=== PATIENT | female | born 1980 | race African-American/Black ===

== ENCOUNTER 2017-08-25 08:04 | Inpatient (IN) | payer OTHER ==
[2017-08-25] MEDS ORDERED: BUTORPHANOL TARTRATE 1 MG/ML VIAL IVPB ONE (09:03)
[2017-08-25] MEDS ORDERED: PROMETHAZINE HCL 25 MG/1 ML VIAL IVPUSH ONE (09:03)
[2017-08-25] MEDS ORDERED: MAG HYDROX/AL HYDROX/SIMETH 30 ML UNIT-DOSE CUP PO PRN (09:16)
[2017-08-25] MEDS ORDERED: DINOPROSTONE 10 MG VAGINAL SUPPOSITORY VG ONE ×2 (09:23→21:10)
[2017-08-25] MEDS ORDERED: ACETAMINOPHEN 325 MG TABLET (FP) PO PRN (09:26)
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
[2017-08-25 10:17] LABS: BASOPHIL 0.3 % (0-2.0); EOSINOPHIL 1.8 % (0-4.5); MCH 29.2 pg (25.7-33.7); MCHC 34.7 g/dl (32.0-36.0); MEAN CELL VOLUME 84.1 fl (80-96); MEAN PLT VOLUME 8.2 fl (7.5-11.1); NEUTROPHILS 51.4 % (42.8-82.8); PLATELET COUNT 131 K/MM3 (134-434); RDW 13.9 % (11.6-15.6)
[2017-08-25 10:29] VITALS: BMI 34.1
[2017-08-25] MEDS: oxyCODONE HCL 5 MG TABLET PO PRN ×3 (10:45→23:25)
[2017-08-25 10:46] LABS: INR 1.04 (0.82-1.09); PROTHROMBIN TIME (PATIENT) 11.7 SEC (9.98-11.88)
[2017-08-25 10:56] LABS: ANION GAP 7 (8-16); CALCIUM 8.6 mg/dL (8.5-10.1); CO2 23 mmol/L (21-32); CREATININE 0.3 mg/dL (0.55-1.02); GLUCOSE,RANDOM 76 mg/dL (74-106)
[2017-08-25] MEDS ORDERED: RANITIDINE HCL 150 MG TABLET (FP) PO PRN (15:16)
--- NOTE | 2017-08-25 21:08 | PN ---
Ante-Partal Exam - Subjective Subjective: Pt feeling some contractions today but tolerating them. Vital Signs: Vital Signs Temperature 98.0 F 08/25/17 18:00 Pulse Rate 80 08/25/17 20:00 Respiratory Rate 18 08/25/17 20:00 Blood Pressure 121/67 08/25/17 20:00 O2 Sat by Pulse Oximetry (%) Bleeding: Yes Bleeding Description: Mild Headache: No Visual changes: No Right upper quadrant pain: No - Contractions Contractions: Yes Regularity: Irregular Intensity: Mild Monitor Mode: External - Exam during Labor Heart Rate: 140 Variability: Moderate Category: I Monitor Accelerations: Present Monitor Decelerations: None Exam: Vaginal Dilatation (cm): 2 Effacement (%): 0 Amniotic Membrane Status: Intact Presentation: Vertex Station: -3 - Assessment/Plan Assessment/Plan: 37 y/o, IOL for CHTN s/p cervidil, removed, for 2nd cervidil tonight and removal in a.m. - then pitocin GBS positive, to start once ROM or if needs pain meds/active labor
[2017-08-25] MEDS: ELECTROLYTE-148 SOLN 1,000 ML IV SCH (22:30)
[2017-08-26] MEDS ORDERED: AMPICILLIN - 2 GM in SODIUM CHLORIDE 100 ML IVPB ONE (01:00)
[2017-08-26] MEDS ORDERED: FENTANYL/BUPIVACAINE/NS/PF - PCEA - 50 ML DISP.SYRIN EP SCH (01:00)
[2017-08-26] MEDS: AMPICILLIN - 1 GM in SODIUM CHLORIDE 100 ML IVPB SCH ×5 (05:00→21:32)
--- NOTE | 2017-08-26 05:07 | PN ---
Ante-Partal Exam - Subjective Subjective: Pt comfortable s/p epidural. Vital Signs: Vital Signs Temperature 98.0 F 08/26/17 02:00 Pulse Rate 83 08/26/17 03:30 Respiratory Rate 20 08/26/17 03:30 Blood Pressure 109/61 08/26/17 03:30 O2 Sat by Pulse Oximetry (%) 96 08/26/17 03:00 Bleeding: Yes Bleeding Description: Mild Headache: No Visual changes: No Right upper quadrant pain: No Pain (scale 1-10): 2 - Contractions Contractions: Yes Regularity: Regular Intensity: Mod/Strong Monitor Mode: External - Exam during Labor Heart Rate: 130 Variability: Moderate Category: I Monitor Accelerations: Present Monitor Decelerations: None Exam: Vaginal Dilatation (cm): 3.5 Effacement (%): 50 Amniotic Membrane Status: Intact Presentation: Vertex Station: -2 - Assessment/Plan Assessment/Plan: 37 y/o , IOL at 38 weeks for chronic HTN - FHTS cat 1 - IOL, s/p cervidil X 2 , 2nd cervidil removed at this time. Will start pitocin around 6am - GBS positive, continue ampicillin - anticipate
[2017-08-26] MEDS ORDERED: OXYTOCIN 15 UNITS/ LR 250 ML 15 UNIT/250 ML INFUS.BAG IV SCH (06:30)
[2017-08-26] MEDS: oxyCODONE HCL 5 MG TABLET PO PRN ×2 (07:25→16:05)
--- NOTE | 2017-08-26 07:54 | PN ---
Ante-Partal Exam - Subjective Subjective: Pt feeling some pain with contractions. Vital Signs: Vital Signs Temperature 98.1 F 08/26/17 05:58 Pulse Rate 77 08/26/17 06:45 Respiratory Rate 20 08/26/17 06:45 Blood Pressure 115/69 08/26/17 06:45 O2 Sat by Pulse Oximetry (%) 96 08/26/17 06:45 Bleeding: No Headache: No Visual changes: No Right upper quadrant pain: No - Contractions Contractions: Yes Regularity: Regular Intensity: Mild/Mod - Exam during Labor Heart Rate: 145 Variability: Moderate Category: I Monitor Accelerations: Present Monitor Decelerations: None Exam: Vaginal Dilatation (cm): 4 Effacement (%): 50 Amniotic Membrane Status: Intact Presentation: Vertex Station: -2 - Assessment/Plan Assessment/Plan: 37 y/o , IOL at 38 weeks for cHTN - FHTs cat 1 - IOL, s/p cervidil, now on pitocin - GBS positive, continue ampicillin - chronic pain on oxycodone throughout - took dose this a.m. (TID dosing) - will inform neonatology for delivery - continue active management
--- NOTE | 2017-08-26 17:33 | PN ---
Ante-Partal Exam - Subjective Subjective: Pt feeling vaginal pain/pressure. Vital Signs: Vital Signs Temperature 98.7 F 08/26/17 15:02 Pulse Rate 78 08/26/17 16:30 Respiratory Rate 20 08/26/17 16:30 Blood Pressure 114/92 08/26/17 16:30 O2 Sat by Pulse Oximetry (%) 96 08/26/17 06:45 Bleeding: Yes Bleeding Description: Mild Headache: No Visual changes: No Right upper quadrant pain: No Pain (scale 1-10): 6 - Contractions Contractions: Yes Regularity: Regular Intensity: Mod/Strong Monitor Mode: External - Exam during Labor Heart Rate: 155 Variability: Moderate Category: I Monitor Accelerations: Present Monitor Decelerations: None Exam: Vaginal Dilatation (cm): 7.5 Effacement (%): 90 Amniotic Membrane Status: Ruptured Presentation: Vertex Station: 0 - Assessment/Plan Assessment/Plan: 37 y/o, SIUP at 38.4 weeks, IOL for cHTN - FHTS cat 1 - IOL, s/p cervidil, now on pitocin, s/p AROM, continue active management - GBS postiive, continue ampicillin - pt on chronic opioid therapy throughout - nursery aware of impending delivery - anticipate
[2017-08-26] MEDS: OXYTOCIN 20 UNITS in 0.9% NS 20 UNIT/1,000 ML INFUS.BAG IV SCH (20:15)
[2017-08-26] MEDS ORDERED: MISOPROSTOL 200 MCG TABLET NR SCH (20:20)
[2017-08-26] MEDS ORDERED: BENZOCAINE 28 GM HEMORRHOIDAL OINTMENT TP PRN (20:35)
[2017-08-26] MEDS ORDERED: METHYLERGONOVINE MALEATE 0.2 MG/1 ML AMP IM PRN (20:35)
[2017-08-26] MEDS ORDERED: WITCH HAZEL 50% (TUCKS) 40 PAD/JAR PAD TP PRN (20:35)
[2017-08-26] MEDS ORDERED: BENZOCAINE 20% 57 GM BOTTLE TP PRN (20:35)
[2017-08-26] MEDS ORDERED: BISACODYL 10 MG SUPP.RECT RC PRN (20:35)
[2017-08-26] MEDS ORDERED: IBUPROFEN 800 MG/8 ML IJ IVPB ONE (20:40)
[2017-08-26] MEDS ORDERED: oxyCODONE HCL 5 MG TABLET PO ONE (20:41)
[2017-08-26] MEDS ORDERED: METHYLERGONOVINE MALEATE 0.2 MG/1 ML AMP IM ONE (20:45)
--- NOTE | 2017-08-26 20:46 | PN ---
Delivery - Delivery Vaginal Delivery: No Problems Type of Anesthesia: Epidural Episiotomy/Laceration: None EBL (cc): 400 Delivery, Single - Stages of Labor Date of Delivery: 08/26/17 Time of Delivery: 20:08 Date Placenta Delivered: 08/26/17 Time Placenta Delivered: 20:12 Placenta: Yes: Spontaneous, Manual Removal - Condition of Color Checker/Structural Fitter Present: No Gender: Female Position: Right, OA - 1 Minute Total Score: 9 5 Minutes Total Score: 10 - Feeding Plan Initial Plan: Elected not to breastfeed exclusively throughout hospitalization Remarks - Remarks Remarks: Uncomplicated delivery of baby girl across intact perineum from EDUARDO position anterior shoudler (right) delivered with ease along with remainder of cord clamped and cut apgars 9/10 placenta manually extracted Uterine atony noted s/p delivery of placenta - pt received one dose of Methergine 0.2mg IM X 1 and Cytotec 1000mcg ND after delivery no laceration EBL 400 lochia WNL after delivery sponge count correct mom stable baby to well baby nursery
[2017-08-26] MEDS ORDERED: MISOPROSTOL 200 MCG TABLET NR ONE (21:00)
[2017-08-26] MEDS: ELECTROLYTE-148 SOLN 1,000 ML IV SCH (22:36)
[2017-08-27] MEDS ORDERED: METHYLERGONOVINE MALEATE 0.2 MG/1 ML AMP IM SCH (00:15)
[2017-08-27] MEDS: oxyCODONE HCL 5 MG TABLET PO PRN ×4 (00:39→22:52)
[2017-08-27] MEDS: ACETAMINOPHEN 325 MG TABLET (FP) PO PRN ×4 (00:40→22:53)
[2017-08-27] MEDS: OXYTOCIN 20 UNITS in 0.9% NS 20 UNIT/1,000 ML INFUS.BAG IV SCH (00:40)
[2017-08-27] MEDS: IBUPROFEN 600 MG TABLET (FP) PO PRN ×3 (00:40→20:26)
[2017-08-27] MEDS: FERROUS SO4 325 MG TABLET (FP) PO SCH ×3 (07:54→17:01)
[2017-08-27] MEDS: METHYLERGONOVINE MALEATE 0.2 MG TABLET (FP) PO SCH ×2 (07:55→14:26)
[2017-08-27 08:48] LABS: BASOPHIL 0.1 % (0-2.0); EOSINOPHIL 0.4 % (0-4.5); MCH 29.6 pg (25.7-33.7); MCHC 34.9 g/dl (32.0-36.0); MEAN CELL VOLUME 84.9 fl (80-96); MEAN PLT VOLUME 8.7 fl (7.5-11.1); NEUTROPHILS 66.5 % (42.8-82.8); PLATELET COUNT 127 K/MM3 (134-434); RDW 13.7 % (11.6-15.6); WHITE BLOOD COUNT 10.3 K/mm3 (4.0-10.0)
[2017-08-27] MEDS: PRENATAL VITAMINS W/ FOLIC ACID TABLET (FP) PO SCH (09:05)
--- NOTE | 2017-08-27 09:17 | PN ---
Post Note - Post Date of Delivery: 08/26/17 Post Day: 1 Vital Signs: Vital Signs - 24 hr 08/26/17 08/26/17 08/26/17 09:30 09:45 10:00 Temperature Pulse Rate 79 79 79 Respiratory 20 20 20 Rate Blood Pressure 115/65 121/69 113/65 O2 Sat by Pulse Oximetry (%) 08/26/17 08/26/17 08/26/17 10:15 10:30 10:45 Temperature Pulse Rate 76 80 79 Respiratory 20 20 20 Rate Blood Pressure 111/70 114/71 117/69 O2 Sat by Pulse Oximetry (%) 08/26/17 08/26/17 08/26/17 11:00 11:15 11:30 Temperature 97.9 F Pulse Rate 77 77 78 Respiratory 20 20 20 Rate Blood Pressure 131/73 122/72 121/69 O2 Sat by Pulse Oximetry (%) 08/26/17 08/26/17 08/26/17 11:45 12:00 12:15 Temperature Pulse Rate 83 79 87 Respiratory 20 20 20 Rate Blood Pressure 109/66 100/54 128/71 O2 Sat by Pulse Oximetry (%) 08/26/17 08/26/17 08/26/17 12:30 12:45 13:00 Temperature Pulse Rate 80 73 78 Respiratory 20 20 20 Rate Blood Pressure 115/67 106/63 111/64 O2 Sat by Pulse Oximetry (%) 08/26/17 08/26/17 08/26/17 13:30 13:45 14:00 Temperature 98.5 F Pulse Rate 91 H 71 Respiratory 20 20 Rate Blood Pressure 115/64 109/55 O2 Sat by Pulse Oximetry (%) 08/26/17 08/26/17 08/26/17 14:15 14:30 14:45 Temperature Pulse Rate 83 73 77 Respiratory 20 20 20 Rate Blood Pressure 117/61 113/59 117/74 O2 Sat by Pulse Oximetry (%) 08/26/17 08/26/17 08/26/17 15:00 15:02 15:15 Temperature 98.7 F Pulse Rate 77 78 Respiratory 20 20 Rate Blood Pressure 125/63 125/74 O2 Sat by Pulse Oximetry (%) 08/26/17 08/26/17 08/26/17 15:30 15:45 16:00 Temperature Pulse Rate 80 86 72 Respiratory 20 20 20 Rate Blood Pressure 123/75 129/76 112/55 O2 Sat by Pulse Oximetry (%) 08/26/17 08/26/17 08/26/17 16:15 16:30 16:45 Temperature Pulse Rate 85 78 79 Respiratory 20 20 20 Rate Blood Pressure 118/78 114/92 125/72 O2 Sat by Pulse Oximetry (%) 08/26/17 08/26/17 08/26/17 17:00 17:15 17:30 Temperature Pulse Rate 83 79 87 Respiratory 20 20 20 Rate Blood Pressure 128/74 128/73 124/71 O2 Sat by Pulse Oximetry (%) 08/26/17 08/26/17 08/26/17 17:45 18:00 18:15 Temperature Pulse Rate 91 H 84 92 H Respiratory 20 20 20 Rate Blood Pressure 122/70 125/60 121/75 O2 Sat by Pulse Oximetry (%) 08/26/17 08/26/17 08/26/17 18:30 18:45 19:00 Temperature Pulse Rate 93 H 98 H 85 Respiratory 20 20 18 Rate Blood Pressure 123/69 123/70 126/67 O2 Sat by Pulse Oximetry (%) 08/26/17 08/26/17 08/26/17 19:15 19:30 19:45 Temperature 98.6 F Pulse Rate 93 H 93 H 89 Respiratory 18 18 18 Rate Blood Pressure 135/77 124/75 124/74 O2 Sat by Pulse Oximetry (%) 08/26/17 08/26/17 08/26/17 20:00 20:30 20:45 Temperature Pulse Rate 96 H 75 77 Respiratory 18 18 18 Rate Blood Pressure 138/83 135/73 134/70 O2 Sat by Pulse 100 100 Oximetry (%) 08/26/17 08/26/17 08/26/17 21:00 21:15 21:30 Temperature 98.8 F Pulse Rate 75 76 75 Respiratory 18 18 18 Rate Blood Pressure 135/70 127/70 135/70 O2 Sat by Pulse 100 100 100 Oximetry (%) 08/26/17 08/26/17 08/27/17 21:45 22:10 02:00 Temperature 98.8 F 98.0 F 98.0 F Pulse Rate 87 85 73 Respiratory 18 18 18 Rate Blood Pressure 137/82 154/84 131/78 O2 Sat by Pulse 100 100 Oximetry (%) 08/27/17 06:00 Temperature 97.9 F Pulse Rate 57 L Respiratory 18 Rate Blood Pressure 135/75 O2 Sat by Pulse Oximetry (%) Labs: Laboratory Results - last 24 hr 08/27/17 07:35 WBC 10.3 H D RBC 3.45 L Hgb 10.2 L Hct 29.3 L MCV 84.9 MCH 29.6 MCHC 34.9 RDW 13.7 Plt Count 127 L MPV 8.7 Neutrophils % 66.5 D Lymphocytes % 27.4 D Monocytes % 5.6 Eosinophils % 0.4 Basophils % 0.1 - Subjective Subjective: Other (Pt in shower) - Objective Afebrile: Yes Vagina: Scant lochia - Assessment/Plan (1) Vaginal delivery Assessment: S/P Normal Plan: Routine Care
[2017-08-27] MEDS ORDERED: SENNOSIDES/DOCUSATE COMBO (SENNA PLUS) TABLET (UD) PO PRN (22:00)
[2017-08-28] MEDS: oxyCODONE HCL 5 MG TABLET PO PRN (07:46)
[2017-08-28] MEDS: FERROUS SO4 325 MG TABLET (FP) PO SCH ×2 (07:46→11:50)
[2017-08-28] MEDS: ACETAMINOPHEN 325 MG TABLET (FP) PO PRN (07:47)
--- NOTE | 2017-08-28 08:42 | DS ---
Physical Exam-HAND WINDER Vital Signs: Vital Signs Temperature 98.0 F 08/27/17 20:16 Pulse Rate 55 L 08/27/17 20:16 Respiratory Rate 20 08/27/17 20:16 Blood Pressure 130/76 08/27/17 20:16 O2 Sat by Pulse Oximetry (%) 100 08/26/17 22:10 Constitutional: Yes: Well Nourished, No Distress, Calm Eyes: Yes: Conjunctiva Clear, EOM Intact HENT: Yes: Atraumatic, Normocephalic Neck: Yes: Supple, Trachea Midline Cardiovascular: Yes: Regular Rate and Rhythm Respiratory: Yes: Regular, CTA Bilaterally Gastrointestinal: Yes: Normal Bowel Sounds, Soft External Genitalia: Yes: Other (vuvlar varicosities on right side) Vaginal Exam: Yes: Normal Uterus: Yes: Normal Labs: CBC, BMP 08/27/17 07:35 08/25/17 09:40 Delivery - Delivery Vaginal Delivery: No Problems Type of Anesthesia: Epidural Episiotomy/Laceration: None EBL (cc): 400 Delivery, Single - Stages of Labor Date 1st Stage Initiatied: 08/26/17 Time 1st Stage Initiated: 00:00 Date 2nd Stage Initiated: 08/26/17 Time 2nd Stage Initiated: 19:50 Date of Delivery: 08/26/17 Time of Delivery: 20:08 Date Placenta Delivered: 08/26/17 Time Placenta Delivered: 20:12 Placenta: Yes: Spontaneous, Manual Removal - Condition of Cable Maintainer/Build Engineer Present: No Infant Gender: Female Weight: 6 lb 1 oz Position: Right, OA Total Hours ROM (Hrs/Mins): 9hrs/52mins - 1 Minute Total Score: 9 5 Minutes Total Score: 10 - Feeding Plan Initial Plan: Elected not to breastfeed exclusively throughout hospitalization Discharge Summary Current Active Problems Chronic hypertension affecting (Acute) Elderly multigravida (Acute) Group beta Strep positive (Acute) Varicose vein leg preg-unsp (Acute) Procedures: Principal: normal Hospital Course: Pt underwent uncomplicated induction of labor and . Pt discharged home in stable condition on post day 2. Condition: Good - Instructions Diet, Activity, Other Instructions: Physical activity Resume your normal everyday activity as tolerated but no heavy lifting or strenuous exercise until seen by your doctor. You may walk unlimited amounts and climb stairs. You may resume driving the car when you feel safe and comfortable behind the wheel. No sexual activity as instructed for 6 weeks. Wound care You have stitches that will dissolve on their own. You may shower daily, please don't soak in tubs/baths/pools for 6 weeks. Diet There are no dietary restrictions. Eat healthy, high-fiber foods. Drink 6 to 8 glasses of liquid each day. This will assist in keeping your bowels regular. Pain management You may take Tylenol or Ibuprofen (for example, Motrin, Advil etc) as needed for pain. Call MD for any of the following: Severe pain not relieved by medication Fever of 101 or higher Excessive bleeding or drainage on dressing Inability to urinate return to office in 4-6 weeks. call for appointment. Referrals: Radha Barksdale MD [Staff Physician] - Disposition: HOME - Home Medications Comprehensive Discharge Medication List: Ambulatory Orders Acetaminophen [Tylenol .Regular Strength -] 650 mg PO Q4H PRN #0 tablet Docusate Sodium [Colace -] 1 cap PO DAILY 08/25/17 Oxycodone HCl [Roxicodone] 10 mg PO PRN PRN 08/25/17 Vit/Iron Fumarate/FA [ Tablet] 1 tab PO DAILY 08/25/17 Zantac - 150 tab PO PRN PRN 08/25/17 Ibuprofen [Motrin -] 600 mg PO QID PRN #28 tablet 08/27/17
[2017-08-28 09:11] VITALS: BP 128/73; PULSE 66; TEMP 97.5
[2017-08-28] MEDS: PRENATAL VITAMINS W/ FOLIC ACID TABLET (FP) PO SCH (09:50)
== END 2017-08-28 12:30 | disposition home or self-care (01) | DRG 560 ==
LOC: JLDR 08:04 → J3W 08-26 22:10
PROVIDERS: ADMIT Obstetrics & Gynecology; ATTEND Obstetrics & Gynecology
DX: O10.02 Pre-existing essential hypertension complicating childbirth (principal); O99.824 Streptococcus B carrier state complicating childbirth; O87.4 Varicose veins of lower extremity in the puerperium; O87.8 Other venous complications in the puerperium; K21.9 Gastro-esophageal reflux disease without esophagitis; O26.893 Other specified pregnancy related conditions, third trimester; M54.5 Low back pain; G89.29 Other chronic pain; O32.2XX0 Maternal care for transverse and oblique lie, not applicable or unspecified; O72.1 Other immediate postpartum hemorrhage; O99.214 Obesity complicating childbirth; E66.9 Obesity, unspecified; Z68.34 Body mass index [BMI] 34.0-34.9, adult; Z87.891 Personal history of nicotine dependence; Z3A.38 38 weeks gestation of pregnancy; Z37.0 Single live birth
CPT/HCPCS: 36415; 59409; 80048; 85025; 85610; 85730; 86593; 86850; 86900; 86901; 86922

== ENCOUNTER → 2018-11-17 | Day surgery (SDC) | payer OTHER ==
[~2018-11-17] MED LIST: ACETAMINOPHEN 1000 MG/100 ML VIAL (NON FORMULARY) IVPB ONE; ACETAMINOPHEN 325 MG TABLET (FP) PO PRN; ACETAMINOPHEN INJECTION 100 ML IVPB ONE; BUPIVACAINE HCL/PF (5 MG/ML) 30 ML VIAL IJ ONE; BUPIVACAINE HCL/PF 0.5% (5MG/ML) 10 ML VIAL ONE; IBUPROFEN 800 MG/8 ML IJ IVPB PRN; LACTATED RINGERS SOLUTION 1,000 ML IV SCH; MIDAZOLAM HCL 2 MG/2 ML SINGLE DOSE VIAL ONE; NEOSTIGMINE METHYLSULFATE 0.5 MG/ML - 10 ML MDV ONE; ONDANSETRON 4 MG/2 ML VIAL IVPUSH PRN; PROMETHAZINE HCL 25 MG/1 ML VIAL IVPB PRN; ROCURONIUM BROMIDE 50 MG/5 ML VIAL ONE
[2018-11-17 09:35] VITALS: BMI 34.2
--- NOTE | 2018-11-17 10:13 | HP ---
History & Physical Update - History History: No Change - Physical Physical: No Change - Assessment Assessment: No Change - Plan Plan: No Change (Agree with H&P from 11/15/18 - for laparoscopic b/l salpingectomy)
--- NOTE | 2018-11-17 11:49 | OP ---
<Alen Montgomery - Last Filed: 11/17/18 11:46> Operative Note - Note: Operative Date: 11/17/18 Pre-Operative Diagnosis: Elective sterilization Operation: Laprascopic bilateral salpingectomy Post-Operative Diagnosis: Same as Pre-op Surgeon: Zoe Garcia Vp Corporate Development: Alen Montgomery Anesthesiologist/SOIL CHEMIST: William Vargas Anesthesia: General Specimens Removed: bilateral tubes Estimated Blood Loss (mls): 10 Drains, Volume Out (mls): 100 (clear/almonte) Fluid Volume Replaced (mls): 800 Operative Report Dictated: Yes <Zoe Garcia - Last Filed: 11/18/18 06:52> Operative Note - Note: Operation: dictation [id number]
--- NOTE | 2018-11-17 11:50 | SURG ---
Surgery Headrig Sawyer Note Headrig Sawyer: Alen Montgomery PA-C Date of Service: 11/17/18 Diagnosis: Elective sterilization Procedure: Laprascopic bilateral salpingectomy I was present for the entirety of the operative procedure. For further detail, please refer to operative report. Visit type - Case Type Case Type: Scheduled - New patient This patient is new to me today: Yes Date on this admission: 11/17/18
[2018-11-17 13:23] VITALS: BP 140/92; PULSE 84; TEMP 97.5
--- NOTE | 2018-11-18 07:37 | OP ---
DATE OF OPERATION: 11/17/2018 PREOPERATIVE DIAGNOSIS: Desires sterilization, multiparity. POSTOPERATIVE DIAGNOSIS: Desires sterilization, multiparity. PROCEDURE: Laparoscopic bilateral salpingectomy. SURGEON: Zoe Garcia MD REPRESENTATIVE GOVERNMENT RELATIONS: REBEL Restrepo ANESTHESIA: General.by Roosevelt Kinney MD, and William Vargas CRNA. ESTIMATED BLOOD LOSS: 10 mL. COMPLICATIONS: None. COUNTS: Sponge, needle, and instrument counts correct. SPECIMENS REMOVED: Bilateral fallopian tubes. DISPOSITION: Stable to PACU. BRIEF HISTORY AND PROCEDURE: Patient is a 38-year-old female who had been seen in the office and expressed desire for a sterilization procedure. The patient was counseled on her options and signed consents for a laparoscopic bilateral salpingectomy. The patient was admitted to [facility] on November 17, 2018. Consents for the procedure were reconfirmed, and the patient was taken back to the operating room and given general anesthesia and placed in the dorsal lithotomy position. She was prepped and draped in the usual standard fashion. A New catheter was placed under sterile conditions, and a hard time-out was performed. A 5-mm skin incision was created in the umbilicus,. and a Veress needle was inserted intraabdominally. The abdomen was insufflated with CO2 gas, and a 5-mm trocar was placed in the umbilical incision, and the camera was inserted. After a confirmation of intraabdominal placement, two 5-mm lower quadrant ports were placed, one in the left, one in the right. The left fallopian tube was identified and traced to is fimbriated end, elevated and dissected off its attachments to the ovary, mesosalpinx, and uterus using the LigaSure device. It was removed from the trocar under direct visualization and sent to Pathology for permanent evaluation. The same was repeated with the right fallopian tube. All surgical sites were noted to be hemostatic. Examination of the remainder of the intraabdominal contents appeared to be normal. All instruments were removed from the abdomen. The abdomen was desufflated. The trocars were removed. The skin was reapproximated using 4-0 Biosyn and skin glue. The New catheter was removed. The patient was awoken from anesthesia and recovered in stable condition in the PACU after the procedure. ZOE GARCIA DO /[id number]
--- NOTE | 2018-11-19 18:24 | PATH ---
Surgical Pathology Report Patient Name: INOCENCIA BAXTER [facility]. Rec. #: [id number] /Age/Gender: 1980 (Age: 38) / F Account: [id number] Location: [facility] OBS/SUPPLY TECHNICIAN Taken: 11/17/2018 Received: 11/17/2018 Reported: 11/19/2018 Physicians: Zoe Garcia M.D. Specimen(s) Received A: LEFT FALLOPIAN TUBE B: RIGHT FALLOPIAN TUBE Clinical History Voluntary sterilization Final Diagnosis A. FALLOPIAN TUBE, LEFT, LAPAROSCOPIC SALPINGECTOMY: UNREMARKABLE FALLOPIAN TUBE (INCLUDING FIMBRIATED END AND FULL LUMINAL PORTION). B. FALLOPIAN TUBE, RIGHT, LAPAROSCOPIC SALPINGECTOMY: FALLOPIAN TUBE WITH PARATUBAL CYST (INCLUDING FIMBRIATED END AND FULL LUMINAL PORTION). Electronically Signed Rosa Isela Enrique M.D. Gross Description A. Received in formalin labeled "left fallopian tube," is an 8.5 cm in length fimbriated fallopian tube. The outer surface is denton-galeas and smooth. Sectioning reveals an unremarkable lumen. Dust Puller sections are submitted in 2 cassettes as follows: 1-fimbria; 2-cross sections of fallopian tube. B. Received in formalin labeled "right fallopian tube," is an 8.5 cm in length fimbriated fallopian tube. The outer surface is galeas purple and smooth with a 0.5 cm in greatest dimension paratubal cyst attached to the fimbria. Sectioning reveals an unremarkable lumen. Dust Puller sections are submitted in 2 cassettes as follows: 1-fimbria and paratubal cyst; 2-cross section of fallopian tube. [facility]
== END | disposition home or self-care (01) ==
LOC: JASUSAT 04:53
PROVIDERS: ATTEND Obstetrics & Gynecology
PROC: 0U574ZZ Destruction of Bilateral Fallopian Tubes, Percutaneous Endoscopic Approach (ICD-10-PCS; principal; 2018-11-17 10:30)
DX: Z30.2 Encounter for sterilization (principal)
CPT/HCPCS: 36415; 84703; 88302-TC; 94760; J0131

== ENCOUNTER 2019-12-25 13:27 | Emergency (ER) | payer OTHER ==
[2019-12-25 13:36] VITALS: BP 147/89; PULSE 76; TEMP 97.9
--- NOTE | 2019-12-25 13:39 | PDOC ---
History of Present Illness - General Stated Complaint: COUGH/SOB/CHEST PAIN Time Seen by Provider: 12/25/19 13:36 History Source: Patient - History of Present Illness Timing/Duration: reports: other Past History - Past Medical History Allergies/Adverse Reactions: Allergies Allergy/AdvReac Type Severity Reaction Status Date / Time No Known Allergies Allergy Verified 11/17/18 09:29 Home Medications: Ambulatory Orders Acetaminophen [Tylenol .Regular Strength -] 650 mg PO Q4H PRN #0 tablet 05/21/12 Hydrochlorothiazide 25 mg PO DAILY 11/17/18 Asthma: No Cancer: No Cardiac Disorders: No Diabetes: No HTN: Yes Seizures: No Thyroid Disease: No - Surgical History Orthopedic Surgery: Yes (Right hand sx) - Psycho Social/Smoking Cessation Hx Smoking History: Never smoked Have you smoked in the past 12 months: No Number of Cigarettes Smoked Daily: 0 If you are a former smoker, when did you quit?: 2016 Information on smoking cessation initiated: No Hx Alcohol Use: No Drug/Substance Use Hx: No Substance Use Type: None Hx Substance Use Treatment: No Review of Systems - Review of Systems Constitutional: Yes: Chills, Fever Respiratory: Yes: Cough Cardiac (ROS): No: Chest Pain *Physical Exam - Vital Signs Last Vital Signs Temp Pulse Resp BP Pulse Ox 97.9 F 76 20 147/89 100 12/25/19 13:27 12/25/19 13:27 12/25/19 13:27 12/25/19 13:27 12/25/19 13:27 - Physical Exam General Appearance: Yes: Appropriately Dressed. No: Apparent Distress HEENT: positive: Normal ENT Inspection, Normal Voice, TMs Normal, Pharynx Normal. negative: Scleral Icterus (R), Scleral Icterus (L) Neck: positive: Supple Respiratory/Chest: positive: Lungs Clear, Normal Breath Sounds. negative: Respiratory Distress Cardiovascular: positive: Regular Rate, S1, S2 Integumentary: positive: Dry, Warm Neurologic: positive: Fully Oriented, Alert, Normal Mood/Affect Medical Decision Making - Medical Decision Making 12/25/19 13:37 39 yo F, HTN, works at [employer], here w/ sob w/ cough and HARRELL since yesterday see exam Viral illness Works in assisted living Exam unremarkable CXR pending 12/25/19 13:52 Signed out to OJ Martínez at this point Discharge - Discharge Information Problems reviewed: Yes Clinical Impression/Diagnosis: Viral illness - Follow up/Referral - Patient Discharge Instructions - Post Discharge Activity
--- NOTE | 2019-12-25 14:58 | PDOC ---
*Physical Exam - Vital Signs Last Vital Signs Temp Pulse Resp BP Pulse Ox 97.9 F 76 20 147/89 100 12/25/19 13:27 12/25/19 13:27 12/25/19 13:27 12/25/19 13:27 12/25/19 13:27 Medical Decision Making - Medical Decision Making 12/25/19 14:57 cxr shows early infiltrates. ambulated the ED ramp, o2 sat 98% on RA with mask, rx sent for zpak Discharge - Discharge Information Problems reviewed: Yes Clinical Impression/Diagnosis: Pneumonia Condition: Good Disposition: HOME - Additional Discharge Information Prescriptions: Acetaminophen 650 mg PO QID PRN #60 tablet PRN Reason: Fever Azithromycin [Zithromax Tri-Anselmo (3 DAYS) -] 500 mg PO DAILY #3 tablet - Follow up/Referral Referrals: Jensen Pena MD [Primary Care Provider] - - Patient Discharge Instructions Patient Printed Discharge Instructions: [facility] COVID-19 Isolation Protocol, [facility]-Coronavirus Instructions, Pneumonia-Adult Additional Instructions: You were seen for your cough and possible Coronavirus (COVID-19) Take antibiotics as prescribed Take Tylenol 650 mg every 6 hours as needed for fever or pain. You may take Robitussin or other hkwm-qhm-rgejido cough syrup. Follow the dosing instructions on the bottle. Warm tea, honey, and salt water gargles may help your symptoms. Please take precautions and self quarantine for 2 weeks and follow-up with your primary care doctor and the Department of Health. Return to the nearest emergency department for shortness of breath, difficulty breathing, chest pain, or if you have any changes in your symptoms. - Post Discharge Activity
== END 2019-12-25 15:17 | disposition home or self-care (01) ==
LOC: JER 13:27
DX: J18.9 Pneumonia, unspecified organism (principal)
CPT/HCPCS: 71045-TC-FY; 99283-25; U0002